=== PATIENT | male | born 1955 | race Caucasian/White ===

== ENCOUNTER 2018-12-08 15:43 | Inpatient (IN) | payer MEDICARE, OTHER ==
[~2018-12-08] VITALS: Ht 167.6 cm; Wt 59.9 kg
--- NOTE | 2018-12-08 16:01 | NUR ---
[facility] from [facility] generalized weakness. 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 MACEDONIAN-SPEAKING, BUT UNDERSTANDS SOME LUXEMBOURGER. AOX3, VSS, RR EVEN AND UNLABORED ON RA. MILD DYSARTHRIA, NO FACIAL DROOP. NO ACUTE DISTRESS NOTED. NO OTHER COMPLAINTS AT THIS TIME. ON MONITOR AND READY FOR EVAL.
--- NOTE | 2018-12-08 16:17 | NUR ---
CALLED [facility] TO HAVE BOTTLING SUPERVISOR DR TAY.
[2018-12-08] MEDS ORDERED: IV NS 0.9% 1,000 ML BAG IV ONE (16:30)
[2018-12-08 16:31] LABS: BASOPHILS % (AUTO) 0.6 % (0.0-2.0); EOSINOPHILS % (AUTO) 2.6 % (0.0-6.0); HEMATOCRIT 40 % (39-51); HEMOGLOBIN 13.4 g/dL (13.5-17.5); LYMPHOCYTES # (AUTO) 2.1 /CMM (0.8-4.8); LYMPHOCYTES % (AUTO) 31.7 % (20.0-44.0); MEAN CORPUSCULAR HGB CONC 34 g/dl (31.0-36.0); MEAN CORPUSCULAR VOLUME 96 fL (80-96); MONOCYTES # (AUTO) 0.4 /CMM (0.1-1.30); MONOCYTES % (AUTO) 6.5 % (2.0-12.0); NEUTROPHILS # (AUTO) 3.9 /CMM (1.8-8.9); NEUTROPHILS % (AUTO) 58.6 % (43.0-81.0); PLATELET COUNT (AUTO) 191 /CMM (150-450); RED BLOOD CELL COUNT(AUTO) 4.14 MIL/uL (4.5-6.0); WHITE BLOOD COUNT (AUTO) 6.6 K/uL (4.3-11.0)
[2018-12-08] MEDS ORDERED: AMLO5TAB4 PO (16:31)
[2018-12-08] MEDS ORDERED: FAMO40TA7 PO (16:31)
[2018-12-08] MEDS ORDERED: ACET-2030 PO (16:31)
[2018-12-08] MEDS ORDERED: DEXT15DR6 OP (16:31)
[2018-12-08] MEDS ORDERED: LABE200T5 PO (16:31)
[2018-12-08] MEDS ORDERED: MAGN400O6 PO (16:31)
[2018-12-08] MEDS ORDERED: IPRA3AMP23 IH (16:31)
[2018-12-08] MEDS ORDERED: FERR325T23 PO (16:31)
[2018-12-08] MEDS ORDERED: DOCU-141 PO (16:31)
[2018-12-08] MEDS ORDERED: CALC-1104 PO (16:31)
[2018-12-08] MEDS ORDERED: ASCO500P18 PO (16:31)
[2018-12-08] MEDS ORDERED: TYL2T PO (16:31)
[2018-12-08] MEDS ORDERED: SACC250C PO (16:31)
[2018-12-08] MEDS ORDERED: CHOL200026 PO (16:31)
[2018-12-08] MEDS ORDERED: HYDR-4075 PO (16:31)
[2018-12-08 16:38] LABS: CALCIUM, SERUM 9.3 mg/dL (8.5-10.1); CARBON DIOXIDE 31 mmol/L (21-32); CHLORIDE 108 mmol/L (98-107); CREATININE 0.9 mg/dL (0.6-1.3); GLUCOSE 112 mg/dL (74-106); POTASSIUM 3.4 mmol/L (3.5-5.1); SODIUM SERUM 145 mmol/L (136-145); UREA NITROGEN, BLOOD 20 mg/dL (7-18)
[2018-12-08 16:43] LABS: ALANINE AMINOTRANSFERASE 19 U/L (12-78); ALBUMIN 3.4 g/dL (3.4-5.0); ALKALINE PHOSPHATASE 140 U/L (46-116); ASPARTATE AMINOTRANSFERASE 13 U/L (15-37); BILIRUBIN,TOTAL 0.3 mg/dL (0.2-1.0); LIPASE 167 U/L (73-393); TOTAL PROTEIN, SERUM 6.9 g/dL (6.4-8.2)
--- NOTE | 2018-12-08 16:43 | NUR ---
HOUSE SUP WAS CALLED FOR MS BED
--- NOTE | 2018-12-08 16:56 | NUR ---
URINE SENT TO STAT LAB
[2018-12-08 17:05] LABS: APPEARANCE,URINE Clear (CLEAR); BILIRUBIN,URINE Negative (NEGATIVE); BLOOD, URINE Negative Ery/uL (NEGATIVE); COLOR,URINE Yellow (YELLOW); KETONES,URINE Negative (NEGATIVE); LEUKOCYTE ESTERASE ,URINE Negative (NEGATIVE); NITRITE, URINE Negative (NEGATIVE); PH,URINE 8.5 (5.0-8.0); PROTEIN,URINE Negative (NEGATIVE); UGLUCOSE Negative (NEGATIVE); UROBILINOGEN,URINE 0.2 EU/dL (0.2)
--- NOTE | 2018-12-08 17:34 | NUR ---
MS BED 201
[2018-12-08] MEDS ORDERED: IV NS 0.9% 1,000 ML IV PRN (17:56)
[2018-12-08] MEDS ORDERED: MAG HYDROX/AL HYDROX/SIMETH 30 ML UDC PO PRN (18:00)
[2018-12-08] MEDS ORDERED: hydrALAZINE HCL 10 MG TABLET PO PRN (18:00)
[2018-12-08] MEDS ORDERED: BISACODYL SUPP (10 MG) 10 MG/SUPP.RECT SUPP.RECT RC ONE ×2 (18:00→22:27)
[2018-12-08] MEDS ORDERED: ACETAMINOPHEN 325 MG TABLET PO PRN (18:00)
[2018-12-08] MEDS ORDERED: ONDANSETRON HCL/PF 4 MG/2 ML VIAL IVP PRN (18:00)
[2018-12-08] MEDS ORDERED: HYDROCODONE/APAP 5/325MG 1 EACH TABLET PO PRN (18:00)
[2018-12-08] MEDS ORDERED: Medication Not On Formulary EA (Ipratropium/Albuterol Sulfate (Duoneb 2.5-0.5 Mg/3 Ml So IH PRN (18:00)
[2018-12-08] MEDS ORDERED: MAGNESIUM HYDROXIDE 30 ML UDC PO PRN (18:00)
[2018-12-08] MEDS ORDERED: Z GUARD REMEDY 2 OZ OINT TP PRN (18:00)
--- NOTE | 2018-12-08 18:27 | NUR ---
REPORT GIVEN TO MANUEL FOR 201MS
--- NOTE | 2018-12-08 18:50 | NUR ---
PT TRANSFERRED TO [facility]
[2018-12-08] MEDS ORDERED: IPRATROPIUM NEB FS 0.5 MG/2.5 ML AMPUL.NEB NEB PRN (19:00)
[2018-12-08] MEDS ORDERED: ALBUTEROL FS 2.5 MG/3 ML VIAL.NEB NEB PRN (19:00)
[2018-12-08] MEDS ORDERED: CALCIUM CARBONATE 500 MG TAB.CHEW PO PRN (19:00)
--- NOTE | 2018-12-08 19:55 | NUR ---
MS RN NOTE: PATIENT RESTING IN BED, NO ACUTE DISTRESS NOTED. BREATHING EVEN AND UNLABORED, NO SOB NOTED. IV TO RAC IN PLACE. ORIENTED PATIENT TO ROOM AND USE OF CALL LIGHT. BED LOCKED AND IN LOWEST POSITION, CALL LIGHT IN REACH. WILL CONTINUE MONITOR.
[2018-12-08 20:06] VITALS: BP 170/104
[2018-12-08] MEDS: LABETALOL HCL (100MG) 100 MG TABLET PO SCH (20:18)
[2018-12-08] MEDS: LACTOBACILLUS RHAMNOSUS GG 1 EACH CAP.SPRINK PO SCH (20:18)
[2018-12-08] MEDS: POLYVINYL ALCOHOL 15 ML BOTTLE EACHEYE SCH (20:18)
[2018-12-09 01:55] VITALS: BP 132/85
--- NOTE | 2018-12-09 03:00 | NUR ---
MS RN NOTE: PATIENT SLEEPING IN BED, NO ACUTE DISTRESS NOTED. BREATHING EVEN AND UNLABORED, NO SOB NOTED. BED LOCKED AND IN LOWEST POSITION, CALL LIGHT IN REACH. WILL CONTINUE TO MONITOR.
--- NOTE | 2018-12-09 06:05 | NUR ---
MS RN NOTE: PATIENT RESTING IN BED, NO ACUTE DISTRESS NOTED. BREATHING EVEN AND UNLABORED, NO SOB NOTED. IV TO RAC IN PLACE, INFUSING NS AT 60ML/HR. BED LOCKED AND IN LOWEST POSITION, CALL LIGHT IN REACH. WILL ENDORSE TO DAY NURSE TO CONTINUE WITH PLAN OF CARE.
[2018-12-09 06:28] LABS: BASOPHILS % (AUTO) 0.4 % (0.0-2.0); EOSINOPHILS % (AUTO) 2.6 % (0.0-6.0); HEMATOCRIT 39 % (39-51); HEMOGLOBIN 13.3 g/dL (13.5-17.5); LYMPHOCYTES # (AUTO) 2.2 /CMM (0.8-4.8); LYMPHOCYTES % (AUTO) 31.2 % (20.0-44.0); MEAN CORPUSCULAR HGB CONC 34 g/dl (31.0-36.0); MEAN CORPUSCULAR VOLUME 96 fL (80-96); MONOCYTES # (AUTO) 0.5 /CMM (0.1-1.30); MONOCYTES % (AUTO) 6.5 % (2.0-12.0); NEUTROPHILS # (AUTO) 4.2 /CMM (1.8-8.9); NEUTROPHILS % (AUTO) 59.3 % (43.0-81.0); PLATELET COUNT (AUTO) 175 /CMM (150-450)
[2018-12-09 06:35] LABS: CALCIUM, SERUM 9.2 mg/dL (8.5-10.1); CREATININE 0.7 mg/dL (0.6-1.3); MAGNESIUM 1.9 mg/dL (1.8-2.4); PHOSPHORUS 3.5 mg/dL (2.5-4.9)
[2018-12-09 07:00] LABS: THYROID STIMULATING HORMONE 1.647 uIU/mL (0.358-3.74)
--- NOTE | 2018-12-09 07:26 | NUR ---
RN OPENING NOTE PT WAS RECEIVED IN BED AT LOWEST AND LOCKED POSITION WITH SIDE RAILS UP X2, A/O X3 BREATHING EVEN AND UNLABORED ON RA WITH NO CURRENT COMPLAINTS OF ANY PAIN OR DISTRESS, NOTED TO HAVE SLURRED SPEECH, IV IS PATENT AND INTACT, SAFETY PRECAUTIONS IN PLACE, CALL LIGHT WITHIN REACH, WILL MONITOR ACCORDINGLY
[2018-12-09] MEDS: ASCORBIC ACID 500 MG TABLET PO SCH ×3 (08:37→16:35)
[2018-12-09] MEDS: FAMOTIDINE (20 MG) 20 MG TABLET PO SCH (08:37)
[2018-12-09] MEDS: LACTOBACILLUS RHAMNOSUS GG 1 EACH CAP.SPRINK PO SCH ×2 (08:37→16:35)
[2018-12-09] MEDS: CHOLECALCIFEROL 1,000 UNIT TABLET (VIT D3) PO SCH (08:37)
[2018-12-09] MEDS: FERROUS SULFATE (325 MG) 325 MG/TAB TABLET PO SCH ×3 (08:37→16:35)
[2018-12-09] MEDS: DOCUSATE SODIUM 100 MG CAPSULE PO SCH ×2 (08:37→16:35)
[2018-12-09] MEDS: LABETALOL HCL (100MG) 100 MG TABLET PO SCH ×2 (08:38→16:39)
[2018-12-09] MEDS: AMLODIPINE BESYLATE 5 MG TABLET PO SCH (08:39)
[2018-12-09] MEDS: POLYVINYL ALCOHOL 15 ML BOTTLE EACHEYE SCH ×3 (08:39→16:35)
[2018-12-09] MEDS: POTASSIUM CHLORIDE 20 MEQ TAB.PRT.SR PO SCH ×2 (09:07→11:10)
[2018-12-09] MEDS: ENSURE ENLIVE 237 ML LIQUID (VANILLA) PO SCH ×2 (14:00→17:32)
[2018-12-09] MEDS: IV 1/2NS 1000 ML 1,000 ML IV PRN (14:51)
--- NOTE | 2018-12-09 15:17 | NUR ---
RN NOTE ENSURE WAS NON-ADMIN DUE TO IT NOT BEING AVAILABLE ON THE FLOOR, DIETARY NOTIFIED WILL AWAIT FOR THEM TO BRING IT UP
[2018-12-09 16:00] VITALS: BP 140/96
--- NOTE | 2018-12-09 18:20 | NUR ---
RN CLOSING NOTE PT IN BED AT LOWEST AND LOCKED POSITION WITH SIDE RAILS UP X2, A/O X3 BREATHING EVEN AND UNLABORED ON RA WITH NO COMPLAINTS OF ANY PAIN OR DISTRESS, IV PATENT AND INTACT WITH IVF INFUSING, SAFETY PRECAUTIONS IN PLACE, CALL LIGHT WITHIN REACH, ALL NEEDS ATTENDED TO, WILL ENDORSE TO [employer]BESTOS SHINGLE INSPECTOR RN FOR LUZ MARIA.
--- NOTE | 2018-12-09 19:30 | NUR ---
RECEIVED PATIENT IN BED AWAKE. AO X 3, ABLE TO MAKE NEEDS KNOWN. NO ACUTE DISTRESS NOTED. DENIES ANY PAIN AT THIS. IV SITE PATENT, INTACT; IVF INFUSING ORDERED. SAFETY REMINDERS GIVEN. ON LOW BED WITH BILATERAL UPPER SIDE RAILS UP. CALL BAINS WITHIN EASY REACH. WILL CONTINUE TO MONITOR.
[2018-12-09 20:00] VITALS: BP 127/83
[2018-12-09 20:24] VITALS: BP 127/83
[2018-12-10] MEDS: IV 1/2NS 1000 ML 1,000 ML IV PRN ×2 (04:14→18:04)
--- NOTE | 2018-12-10 06:09 | NUR ---
PATIENT ASLEEP, EASILY AROUSABLE. RESPIRATIONS EVEN. NO SIGNS OF PAIN NOTED. IVF INFUSING ORDERED. NEEDS ATTENDED. KEPT CLEAN, DRY, AND COMFORTABLE. SAFETY PRECAUTIONS AND COMFORT MEASURES IN PLACE. WILL GIVE REPORT TO DAY SHIFT FOR CONTINUITY OF CARE.
[2018-12-10 06:30] LABS: CALCIUM, SERUM 9.1 mg/dL (8.5-10.1); CREATININE 0.8 mg/dL (0.6-1.3); POTASSIUM 3.2 mmol/L (3.5-5.1)
--- NOTE | 2018-12-10 07:15 | NUR ---
MS RN INITIAL NOTES Report received at bedside. Patient received in bed, awake. Alert and oriented x3, verbally responsive with slurred/slow speech. Denies any pain/discomfort at the moment. Safety measures in place. Call light within reach. Will continue to monitor and assess patient.
[2018-12-10 08:00] VITALS: BP 156/94
--- NOTE | 2018-12-10 08:23 | NUR ---
MS ROSAS NON-ADMIN NOTES Ordered prior to shift
[2018-12-10] MEDS: FAMOTIDINE (20 MG) 20 MG TABLET PO SCH (08:24)
[2018-12-10] MEDS: FERROUS SULFATE (325 MG) 325 MG/TAB TABLET PO SCH ×3 (08:25→16:41)
[2018-12-10] MEDS: DOCUSATE SODIUM 100 MG CAPSULE PO SCH ×2 (08:25→16:41)
[2018-12-10] MEDS: POLYVINYL ALCOHOL 15 ML BOTTLE EACHEYE SCH ×3 (08:25→16:43)
[2018-12-10] MEDS: LACTOBACILLUS RHAMNOSUS GG 1 EACH CAP.SPRINK PO SCH ×2 (08:25→16:41)
[2018-12-10] MEDS: ASCORBIC ACID 500 MG TABLET PO SCH ×3 (08:25→16:42)
[2018-12-10] MEDS: AMLODIPINE BESYLATE 5 MG TABLET PO SCH (08:25)
[2018-12-10] MEDS: CHOLECALCIFEROL 1,000 UNIT TABLET (VIT D3) PO SCH (08:26)
[2018-12-10] MEDS: LABETALOL HCL (100MG) 100 MG TABLET PO SCH ×2 (08:26→16:42)
[2018-12-10] MEDS: ENSURE ENLIVE 237 ML LIQUID (VANILLA) PO SCH ×3 (08:26→16:41)
--- NOTE | 2018-12-10 09:03 | NUR ---
MS RN REFUSAL NOTES Patient refused to be turned and repositioned by PRODUCTION TEAM LEADER and I. Patient stated that he is fine that way. Will continue to convince to turn patient every two hours
[2018-12-10] MEDS: POTASSIUM CHLORIDE 20 MEQ TAB.PRT.SR PO SCH ×2 (09:56→09:57)
--- NOTE | 2018-12-10 10:45 | NUR ---
MS RN NOTES Dr. Melgoza at bedside.
[2018-12-10] MEDS ORDERED: diphenhydrAMINE HCL ELIX 25 MG/10 ML UDC PO PRN (11:00)
[2018-12-10 16:00] VITALS: BP 138/94
--- NOTE | 2018-12-10 18:45 | NUR ---
MS RN CLOSING NOTES Patient remained in bed, awake, comfortable. Alert and oriented x3 with slow/slurred speech. Denies any pain/discomfort. Not in any type of distress. No SOB/labored breathing noted. Had an episode of anxiousness but resolved after talking to patient. All due meds given (including eye drops): tolerated well. Kept patient clean and dry. All anticipated needs provided and met. Safety measures in place. Bed in lowest position with bed alarm on and call light within reach. Will continue to monitor and assess patient and will endorse to oncoming shift nurse.
--- NOTE | 2018-12-10 19:20 | NUR ---
MS/RN OPENING NOTES PT RECEIVED AWAKE, HOB ELEVATED. A/OX3. ROMANSH/ARABIC SPEAKING. DELAYED SPEECH NOTED. ON ROOM AIR, BREATHING EVEN AND UNLABORED. DENIES SOB AND PAIN AT THIS TIME. IV TO RAC PATENT AND INTACT RUNNING IVF ORDERED. BED IN LOW/LOCKED POSITION WITH CALL LIGHT IN REACH. BILAT. UPPER SIDE RAILS IN PLACE. SEIZURE PRECAUTIONS IMPLEMENTED. WILL CONTINUE TO MONITOR
[2018-12-10 20:00] VITALS: BP 128/98
[2018-12-10 20:25] VITALS: BP 128/98
--- NOTE | 2018-12-11 06:48 | NUR ---
MS/RN CLOSING NOTES PT AWAKE, ON ROOM AIR, BREATHING EVEN AND UNLABORED. DENIES SOB AND PAIN AT THIS TIME. LEFT SIDED WEAKNESS. SEIZURE PRECAUTIONS IMPLEMENTED. IV TO RAC PATENT AND INTACT RUNNING IVF ORDERED. PT REFUSED TO BE TURNED/REPOSITIONED DURING SHIFT DESPITE EDUCATION OF RISKS. NO SIGNIFICANT CHANGES OVERNIGHT. ALL NEEDS MET AND ANTICIPATED. BED REMAINS IN LOW/LOCKED POSITION WITH CALL LIGHT IN REACH. HOB ELEVATED. WILL ENDORSE TO ONCOMING SHIFT.
[2018-12-11] MEDS: IV 1/2NS 1000 ML 1,000 ML IV PRN (06:57)
[2018-12-11 08:09] VITALS: BP 136/87
[2018-12-11] MEDS: POLYVINYL ALCOHOL 15 ML BOTTLE EACHEYE SCH ×2 (08:29→12:07)
[2018-12-11] MEDS: ASCORBIC ACID 500 MG TABLET PO SCH ×2 (08:30→12:06)
[2018-12-11] MEDS: DOCUSATE SODIUM 100 MG CAPSULE PO SCH (08:30)
[2018-12-11] MEDS: LABETALOL HCL (100MG) 100 MG TABLET PO SCH (08:30)
[2018-12-11] MEDS: FERROUS SULFATE (325 MG) 325 MG/TAB TABLET PO SCH ×2 (08:30→12:06)
[2018-12-11] MEDS: CHOLECALCIFEROL 1,000 UNIT TABLET (VIT D3) PO SCH (08:30)
[2018-12-11] MEDS: LACTOBACILLUS RHAMNOSUS GG 1 EACH CAP.SPRINK PO SCH (08:30)
[2018-12-11] MEDS: FAMOTIDINE (20 MG) 20 MG TABLET PO SCH (08:30)
[2018-12-11 08:31] VITALS: BP 136/87
[2018-12-11] MEDS: AMLODIPINE BESYLATE 5 MG TABLET PO SCH (08:31)
[2018-12-11] MEDS: ENSURE ENLIVE 237 ML LIQUID (VANILLA) PO SCH ×2 (08:31→12:06)
--- NOTE | 2018-12-11 11:40 | NUR ---
MS ROSASCASH SURRENDER CALCULATOR NOTES Called [facility] to give report. Brook (Nurse) took SO information for call back when she's available. Addendum: 12/11/18 at 1359 by SLOAN MARLOW RN 2nd attempt to give report to [facility] CURRAN. Addendum: 12/11/18 at 1404 by SLOAN MARLOW RN Report given to Andrez (RADIO SPORTSCASTER) [phone]
--- NOTE | 2018-12-11 14:05 | NUR ---
MS CO FOUNDER AND CTO Notes Patient was cleared for discharge by MD. Discharge instructions provided to patient and report given to [facility] receiving nurse - verbalized understanding. IV access removed with cath tip intact and no bleeding noted. Discharge papers provided, reviewed and signed by patient. Belongings list signed. All due meds given and tolerated. Denies any pain/discomfort. No SOB/labored breathing noted. Kept patient clean, dry and comfort. Awaiting for ambulance continuous pickling line pickler helper. Will continue to monitor and assess patient
--- NOTE | 2018-12-11 14:36 | NUR ---
MS OFFICE RENTAL CLERK NOTES Patient picked up by [facility] in stable condition. Patient alert and oriented x3, verbally responsive with slow/slurred speech. V/S WNL
== END 2018-12-11 14:30 | DRG 641 ==
LOC: ER 15:50 → MEDSG2 17:38
PROVIDERS: ADMIT Nurse Practitioner Acute Care; ATTEND Nurse Practitioner Acute Care
DX: E86.0 Dehydration (principal); I69.354 Hemiplegia and hemiparesis following cerebral infarction affecting left non-dominant side; R62.7 Adult failure to thrive; K59.00 Constipation, unspecified; E87.0 Hyperosmolality and hypernatremia; D63.8 Anemia in other chronic diseases classified elsewhere; I10 Essential (primary) hypertension; G40.909 Epilepsy, unspecified, not intractable, without status epilepticus; I69.321 Dysphasia following cerebral infarction; E87.6 Hypokalemia
CPT/HCPCS: 36415; 71045-TC; 80048-TC; 80061-TC; 80076-TC; 81000-TC; 83690-TC; 83735-TC; 84100-TC; 84443-TC; 84484-TC; 85025-TC; 87081-TC; 87086-TC; 92526; 92611-TC; 97110-TC; 97530-TC; G0378; J3490; J7030